=== PATIENT | female | born 1975 | race Caucasian/White ===

== ENCOUNTER 2018-09-25 13:19 | Inpatient (IN) | payer OTHER ==
[~2018-09-25] VITALS: Ht 170.2 cm; Wt 87.5 kg
[~2018-09-25 13:19] MED LIST: ALBUTEROL; CYCLOBENZAPRINE10 MG PO; ESTROGEN; HYDROCODON-ACE1 EAC7; PERCOCET 5-3251 EACH PO; PREDNISONE 20 M20 MG PO; PRENATAL; PREVACID; PREVACID15 MG; PRILOSEC 20 MG20 MG; PROVENTIL HFA6.7 G1 INH; QVAR HFA 880 MCG/UN1 INH; RECLIPSEN1 EACH PO; [UNRECOGNIZED DRUG - REMARK]
[2018-09-25 13:22] VITALS: BP 128/75
[2018-09-25] MEDS ORDERED: PROPRANOLOL 1010 MG PO (13:34)
[2018-09-25] MEDS ORDERED: ASPIR 8181 MG PO (13:34)
[2018-09-25] MEDS ORDERED: VALACYCLOVIR500 MG PO (13:37)
[2018-09-25] MEDS ORDERED: METFORMIN HCL500 MG PO (13:38)
[2018-09-25] MEDS ORDERED: ZYRTEC10 M5 PO (13:39)
[2018-09-25] MEDS ORDERED: FLONASE 0.05%50 MCG NASAL (13:39)
[2018-09-25 13:46] LABS: ABSOLUTE BASOPHILS 0.1 thou/uL (0.0-0.2); ABSOLUTE EOSINOPHILS 0.3 thou/uL (0.0-0.7); ABSOLUTE LYMPHOCYTES 1.8 thou/uL (0.8-5.3); ABSOLUTE MONOCYTES 0.5 thou/uL (0.0-1.2); ABSOLUTE NEUTROPHILS 2.7 thou/uL (1.6-8.1); BASOPHILS 1.9 %; EOSINOPHILS 6.2 %; HEMATOCRIT 41.8 % (37.0-47.0); LYMPHOCYTES 33.2 %; MCH 29.5 pg (26.0-34.0); MCHC 33.4 g/dL (28.0-37.0); MCV 88.1 fL (80.0-100.0); MONOCYTES 8.8 %; MPV 7.5 fl. (7.2-11.1); NUCLEATED RBCS 0 /100WBC; PLATELET COUNT* 348 thou/uL (150-400); POLYS 49.9 %; RBC 4.75 mil/uL (4.20-5.00); RDW-CV 14.4 % (10.5-14.5); WBC 5.4 thou/uL (4.0-11.0)
[2018-09-25 14:01] LABS: ANION GAP 8 mmol/L (7-16); BUN 9 mg/dL (7-18); CALCIUM 8.7 mg/dL (8.5-10.1); CHLORIDE 106 mmol/L (98-107); CO2 27 mmol/L (21-32); CREATININE 0.8 mg/dL (0.6-1.3); GLUCOSE 90 mg/dL (70-99); POTASSIUM 3.7 mmol/L (3.5-5.1); SODIUM 141 mmol/L (136-145)
[2018-09-25 14:14] LABS: ALBUMIN 3.7 g/dL (3.4-5.0); ALKALINE PHOSPHATASE 65 U/L (46-116); CK-MB MASS 0.6 ng/mL (<0.5-3.6); LIPASE 221 U/L (73-393); MAGNESIUM 1.8 mg/dL (1.8-2.4); NT-PRO BRAIN NAT PEPTIDE 74 pg/mL (<300); SGOT 10 U/L (15-37); SGPT 18 U/L (30-65); TOTAL BILIRUBIN 0.3 mg/dL (<0.1-1.0); TOTAL PROTEIN 7.4 g/dL (6.4-8.2); TROPONIN-I LEVEL <0.06 ng/mL (<0.06)
--- NOTE | 2018-09-25 15:18 | EKG ---
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
[2018-09-25 18:57] VITALS: BP 108/61
[2018-09-25 20:00] VITALS: BP 105/74
[2018-09-25] MEDS ORDERED: IBUPROFEN 400400 M2 PO (20:00)
--- NOTE | 2018-09-25 20:00 | NUR ---
RECEIVED REPORT AND ASSUMED CARE OF PT, ASSESSMENT COMPLETED. SEE ADMISSION ASSESSMENT AND HX. AT BEDSIDE. PT DENIES CHEST PAIN. HEALING INCISION NOTED TO LT CHEST AREA FROM CARDIAC LOOP MONITOR. TELEMETRY APPLIED SHOWING SR. WILL CONT TO MONITOR AND ASSIST NEEDED.
[2018-09-25] MEDS ORDERED: TYLENOL325 MG PO (20:01)
[2018-09-25] MEDS ORDERED: B12INJ IM (20:02)
[2018-09-25] MEDS ORDERED: HYDROCORTISONE30 G9 RECTAL (20:03)
[2018-09-26] VITALS: BP 103/66
[2018-09-26 04:00] VITALS: BP 91/57
--- NOTE | 2018-09-26 06:25 | NUR ---
AWAKE INTERMITTENTLY DURING NIGHT WITH C/O DIZZINESS AND SL CHEST PRESSURE. AFTER BELCHING STATES FEELING BETTER. TELEMETRY CONT TO SHOW SR. HS GOALS OF REST AND SAFETY ACHIEVED. HOURLY ROUNDING OBSERVED. NPO SINCE MN FOR POSS CARDIAC TEST THIS AM.
[2018-09-26 08:00] VITALS: BP 97/61
--- NOTE | 2018-09-26 10:24 | NUR ---
ASSUMED CARE OF PT AT 0730. PT RESTING IN BED. AT BEDSIDE. PT NPO FOR CARDIOLOGY CONSULT. PT TO HAVE NUCLEAR STRESS TEST TODAY. AM MEDICATIONS HELD. PT DENIES ANY PAIN OR SHORTNESS OF BREATH AT THIS TIME. 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 ON RA SAT UPPER 90'S. PT UP AD JASWANT IN ROOM. PT GOAL FOR TODAY IS TO REMAIN FREE FROM CHEST PAIN AND DIZZINESS AND CARDIOLOGY CONSULT IN PLACE. AM ASSESSMENT CHARTED. MEDICATIONS PER JUL. PT REPOSITIONS SELF. HOURLY ROUNDING OBSERVED. BED IN LOW POSITION. CALL LIGHT WITHIN REACH. WILL CONTINUE PLAN OF CARE.
[2018-09-26 11:30] VITALS: BP 111/82
--- NOTE | 2018-09-26 11:45 | NUR ---
Pt is A&O. Resides at home with her and kids. Independent. No DME. No hx of HH or SNF. Goal is home at sd. Cardiology following, planned stress test today. Following.
[2018-09-26] MEDS ORDERED: PRILOSEC OTC20 MG PO (13:08)
--- NOTE | 2018-09-26 17:59 | CARDNUC ---
[place] [address] CARDIAC NUCLEAR IMAGING REPORT Name: ERIC ZHONG Room: [address] IN [facility]#: [id number] Admission: 09/25/18 Attend Phys: Jn Hidalgo Discharge: Date of : 73 Date of Service: 09/26/18 1759 Report #: [id number] THIS REPORT FOR: //name// APPROVED REPORT Study performed: 09/26/2018 16:36:08 Exam: Nuclear Stress Test Indication: Chest pain, Dyspnea, Syncope, Dizziness Patient Location: In-Patient Room #: 208 Stress Tech: April Nayak Stress Nurse: Melissa Mandel RN NM Tech:DORCAS Stinson Ht: 5 ft 7 in Wt: 194 lbs BSA: 2.00 m2 BMI: 30.38 Medical History Medical History: Angina, Arrhythmia, Diabetes, Fatigue, HTN, SOB, Stroke/TIA,Dizziness, Blurred vision, ASA with PFO, > 5 lb. weight gain in one week. Medications: ASA 81 mg, Propranolol, Metformin. Allergies: Penicillins, Macrolide ATB, Propoxyphene, Naproxen, Doxycycline, Azithromycin Cardiac Risk Factors: DM, FHX of CAD, HTN, SOB, second hand smoke exposure, ASA with PFO, CVA's x3. Previous Cardiac Procedures: None Pretest Chest Pain Characteristics: No chest pain Exercise History: Indeterminate Physical Disabilities: HX of falls, syncope episodes, dizziness, lightheadedness, ASA with PFO. Meds Held (24 hrs): None Stress Test Details Stress Test: Pharmacologic stress testing performed using 0.4 mg of regadenoson per 5 mL given IV over 10 seconds. Reason for pharmacologic stress test: ASA with PFO, Syncope episodes, Fall risk.. HR Resting HR: 82 bpm Max Heart Rate (APMHR): 177 bpm Max HR Achieved: 154 bpm Target HR (85% APMHR): 150 bpm % of APMHR: 87 Recovery HR: 95 [place] [address] CARDIAC NUCLEAR IMAGING REPORT Name: ERIC ZHONG Room: [address]#: [id number] Admission: 09/25/18 Attend Phys: Jn Hidalgo Discharge: Date of : 73 Date of Service: 09/26/18 1759 Report #: [id number] Resting BP: 110/63 mmHg Max BP: 109/74 mmHg ECG Resting ECG: Sinus Rhythm Stress ECG: Sinus Tachycardia ST Change: None Arrhythmia: None Recovery ECG: Sinus Rhythm Recovery ST Change: None Recovery Arrhythmia: None Clinical Reason for Termination: Completed protocol Stress Symptoms: SOA, CHEST TIGHTNESS, DIZZINESS, NAUSEA, HEADACHE, LEG THROBBING, JAW PAIN. Exercise duration: 0 min 0 sec Exercise capacity: 1.00 METs The patient tolerated standard Wai protocol exercise without chest pain. Nurse Comments 42 year old female inpatient with dizziness, syncope episodes, ASA with PFO and CP. Patient tolerated sitting Lexiscan with multiple symptoms which resolved with PO caffeine during recovery. Recovery unremarkable. Patient escorted via wheelchair by staff to Nuclear Medicine for images. Patient stable with no complaints at that time. Stress ECG Conclusion Baseline 12-lead EKG showed sinus rhythm without significant ST or T wave abnormality. EKGs obtained during and post exercise showed sinus rhythm and sinus tachycardia with no significant ST or T wave changes when compared to baseline. There were no stress-induced arrhythmias. NM EXAM: Myocardial Perfusion REST/STRESS Imaging Protocol: Rest Tc-99m/Stress Tc-99m 1 day Resting Data Rest SPECT myocardial perfusion imaging was performed in supine position 30 minutes following the intravenous injection of 9.8 mCi of Tc-99m Sestamibi. Time of rest injection: 1500 Date: 09/26/2018 The images were gated to evaluate regional wall motion and calculate [facility] [address] [place] [address] CARDIAC NUCLEAR IMAGING REPORT Name: ERIC ZHONG Room: [address] IN [facility]#: [id number] Admission: 09/25/18 Attend Phys: Jn Hidalgo Discharge: Date of : 73 Date of Service: 09/26/18 1759 Report #: [id number] left ventricular ejection fraction. Administration Route: IV Administration Site: Left AC Pharmacologic Stress Pharmacologic stress test was performed by injecting Regadenoson 0.4 mg IV push followed by the intravenous injection of 34.2 mCi of Tc-99m Sestamibi. Time of stress injection: 1635 Date: 09/26/2018 Administration Route: IV Administration Site: Left AC Gated Stress SPECT was performed 40 minutes after stress injection. The images were gated to evaluate regional wall motion and calculate left ventricular ejection fraction. Study Quality Study: Good Artifact: Mild Diaphragmatic artifact Study Data At rest, the left ventricular ejection fraction was 86%.. Post stress, the left ventricular ejection was 78%.. Perfusion Perfusion studies obtained in the supine position showed photopenia consistent with diaphragmatic attenuation artifact. Post stress prone imaging shows uniform uptake of the radioisotope throughout the myocardium. Wall Motion Normal left ventricular wall motion. Nuclear Conclusion ECG Findings: negative for ischemia Clinical Findings: negative for ischemia Nuclear Findings: negative for ischemia Exercise Capacity: not assessed Left Ventricular Function: normal Risk Study: low Myocardial perfusion images show no defect to suggest infarct or ischemia. Left ventricular systolic function was normal on gated studies. His is a low risk study. <Conclusion> [place] [address] CARDIAC NUCLEAR IMAGING REPORT Name: ERIC ZHONG Room: [address] IN [facility]#: [id number] Admission: 09/25/18 Attend Phys: Jn Hidalgo Discharge: Date of : 73 Date of Service: 09/26/18 1759 Report #: [id number] Baseline 12-lead EKG showed sinus rhythm without significant ST or T wave abnormality. EKGs obtained during and post exercise showed sinus rhythm and sinus tachycardia with no significant ST or T wave changes when compared to baseline. There were no stress-induced arrhythmias. <ELECTRONICALLY SIGNED> By: Walt Hernández MD, FACC 09/26/181758 58 58 Walt Hernández MD, FACC /INF
[2018-09-26 18:28] VITALS: BP 111/82
--- NOTE | 2018-09-26 18:50 | NUR ---
PT HAD STRESS TEST TODAY- PER DR REYES- STRESS TEST NEGATIVE. DISCHARGE ORDERS RECEIVED. DISCHARGE INSTRUCTIONS, CARE NOTES, SCRIPTS AND FOLLOW UP APPTS GIVEN TO PT. PT COMMUNICATES UNDERSTANDING OF DISCHARGE TEACHING. IV AND DIRECTOR OF DISTRIBUTION REMOVED. PT DISCHARGED WITH ALL BELONGINGS AND PAPERWORK VIA WHEELCHAIR WITH NURSING STAFF TO SPOUSE OWN PERSONAL VEHICLE.
== END 2018-09-26 18:51 | disposition home or self-care (01) | DRG 313 ==
LOC: M.ERS 13:19 → M.2W 15:40 → M.TBA-ER 15:40 → M.2W 19:03
PROVIDERS: Emergency Medicine; ADMIT Internal Medicine
DX: R07.89 Other chest pain (principal); M79.7 Fibromyalgia; E78.5 Hyperlipidemia, unspecified; E11.9 Type 2 diabetes mellitus without complications; J45.909 Unspecified asthma, uncomplicated; Z86.73 Personal history of transient ischemic attack (TIA), and cerebral infarction without residual deficits; Z88.1 Allergy status to other antibiotic agents; Z88.0 Allergy status to penicillin; Z88.8 Allergy status to other drugs, medicaments and biological substances; Z79.82 Long term (current) use of aspirin; Z79.84 Long term (current) use of oral hypoglycemic drugs; Z72.89 Other problems related to lifestyle